=== PATIENT | male | born 1940 | race Caucasian/White ===

== ENCOUNTER 2017-03-18 08:43 | Inpatient (IN) | payer BC, OTHER ==
[2017-02-22 12:01] VITALS: BMI 35.0
--- NOTE | 2017-02-22 12:43 | PAT Medication Instructions ---
Service Date Feb 22, 2017. Current Home Medication List Albuterol Hfa (Ventolin Hfa), 2-4 PUFFS INH Q6H PRN for SOB/Wheezing Aspirin (Aspirin Ec), 81 MG PO QAM Atenolol (Tenormin), 25 MG PO QPM Atorvastatin (Lipitor), 40 MG PO QPM Budesonide/Formoterol Fumarate (Symbicort 160/4.5 Inhaler ), 2 PUFFS INH BID Furosemide (Lasix), 40 MG PO UD PRN for EDEMA Levothyroxine Sodium (Levothyroxine Sodium), 1 TAB PO QAM Metformin Hcl (Glucophage), 500 MG PO BID Omeprazole (Prilosec), 40 MG PO QAM Psyllium (Metamucil Fiber), 1 PKT PO BID Tamsulosin Hcl (Flomax), 0.4 MG PO QAM Vitamin E (E-400), 1 CAP PO QPM Vitamin E (Ra Vitamin E), 2 CAP PO QAM Medication Instructions For Your Scheduled Surgery - Hold the following medications 2 weeks prior to surgery: Vitamin E - Hold the following medications 48 hours prior to surgery: Metformin Hcl (Glucophage), 500 MG PO BID - Hold the following medications the morning of surgery: Psyllium (Metamucil Fiber), 1 PKT PO BID Furosemide (Lasix), 40 MG PO UD PRN for EDEMA - Take the following medications the morning of surgery with a sip of water OTHERWISE NOTHING TO EAT OR DRINK AFTER MIDNIGHT: Omeprazole (Prilosec), 40 MG PO QAM Tamsulosin Hcl (Flomax), 0.4 MG PO QAM Aspirin (Aspirin Ec), 81 MG PO QAM Levothyroxine Sodium (Levothyroxine Sodium), 1 TAB PO QAM Albuterol Hfa (Ventolin Hfa), 2-4 PUFFS INH Q6H PRN for SOB/Wheezing (use if needed; BRING TO HOSPITAL) Budesonide/Formoterol Fumarate (Symbicort 160/4.5 Inhaler ), 2 PUFFS INH BID - Take the following medications as scheduled the night before surgery: Psyllium (Metamucil Fiber), 1 PKT PO BID Atenolol (Tenormin), 25 MG PO QPM Atorvastatin (Lipitor), 40 MG PO QPM Albuterol Hfa (Ventolin Hfa), 2-4 PUFFS INH Q6H PRN for SOB/Wheezing Budesonide/Formoterol Fumarate (Symbicort 160/4.5 Inhaler ), 2 PUFFS INH BID If you have any questions please call us at [phone] or [phone] or [phone]
--- NOTE | 2017-02-22 13:22 | DIAGNOSTIC IMAGING REPORT ---
CHEST 2 VIEWS ROUTINE HISTORY: 76 years-old Male PAT preoperative exam. No acute chest complaints. COMPARISON: None available TECHNIQUE: PA and lateral views of the chest FINDINGS: Prior median sternotomy. Cardiac silhouette is mildly enlarged. There is atherosclerosis of the aorta. There is no pneumothorax, pleural effusion or focal airspace consolidation. Minimal linear interstitial opacities of the lung bases suggest areas of scarring. 7 mm nodular opacity projects over the left lung base suggesting nipple shadow. Degenerative changes involve the shoulders and spine. IMPRESSION: 1. No acute cardiopulmonary process. 2. 7 mm nodular projecting over the left lung base suggests nipple shadow. This could be confirmed with follow-up chest radiograph with nipple markers. The above report was generated using voice recognition software. It may contain grammatical, syntax or spelling errors. Electronically signed by: Bryan Francois M.D. 02/22/2017 1:21 PM Dictated Date/Time: 02/22/2017 1:19 PM
[2017-02-22 13:48] LABS: BASO % 0.2 %; BASO ABS # 0.01 K/uL (0-0.2); COMPLETE YES; EOS % 1.4 %; HEMATOCRIT 44.7 % (42-52); IG% 0.3 %; LYMPH % 28.2 %; LYMPH ABS # 1.63 K/uL (1.2-3.4); MEAN CELL VOLUME 88.3 fL (80-100); MEAN CORPUSCULAR HGB CONC 35.1 g/dl (32-36); MEAN PLATELET VOLUME 9.3 fL (7.4-10.4); MONO % 10.2 %; NEUT % 59.7 %; PLATELET COUNT 217 K/uL (130-400); RED BLOOD COUNT 5.06 M/uL (4.7-6.1); WHITE BLOOD COUNT 5.77 K/uL (4.8-10.8)
[2017-02-22 13:56] LABS: CREATININE 1.01 mg/dl (0.60-1.40); POTASSIUM 4.4 mmol/L (3.5-5.1)
[2017-02-22 13:59] LABS: PROTHROMBIN TIME (PATIENT) 10.7 SECONDS (9.0-12.0)
[2017-02-22 14:21] LABS: URINE APPEARANCE CLEAR (CLEAR); URINE BILIRUBIN NEG (NEG); URINE COLOR YELLOW; URINE EPITHELIAL CELL AUTO 0-5 /lpf (0-5); URINE NITRITE NEG (NEG); URINE SPECIFIC GRAVITY 1.023 (1.000-1.030); UROBILINOGEN NEG (NEG); ZZUR CULT IF INDIC CLEAN CATCH NO
[2017-02-22 14:27] LABS: MANUAL MICROSCOPIC REQUIRED? NO; REVIEW REQ? NO
[~2017-03-18] VITALS: Ht 170.2 cm; Wt 103.1 kg
[2017-03-18] VITALS (9 sets, daily range): BP systolic 89–116; BP diastolic 54–72; PULSE 57–72; TEMP 36.2–36.7; O2SAT 94–99; Ht 170.2 cm; Wt 103.1 kg
[~2017-03-18 08:43] MED LIST: ASPI81TA28 PO; ATEN-173 PO; ATOR-24 PO; CLINDAMYCIN 600 MG/54 ML D5W IV SCH; FRS/40 PO; GLC/500 PO; LACTATED RINGER'S 1000ML 1,000 ML IV SCH; LEVO137T3 PO; PRLSR20 PO; PSYL58.636 PO; SYMIN160 INH; TAMS0.4C38 PO; VITACAP37 PO; VNTHFA/IN INH; [UNRECOGNIZED DRUG - CODE] PO
[2017-03-18] MEDS ORDERED: ATROPINE SULFATE 0.1 MG/ML 5ML SYR IV PRN (09:00)
[2017-03-18] MEDS ORDERED: EpHEDrine SULFATE INJ 50 MG/ML AMP IV PRN (09:00)
[2017-03-18] MEDS ORDERED: PHENYLEPHRINE 100MCG/ML 5ML SYR IV PRN (09:00)
[2017-03-18] MEDS ORDERED: ONDANSETRON INJ 2 MG/ML 2 ML VIAL IV PRN ×2 (09:00→14:15)
[2017-03-18] MEDS ORDERED: HYDROmorphone INJ 2 MG/ML SYR/VIAL IV PRN (09:00)
--- NOTE | 2017-03-18 10:15 | History & Physical Bridge Note ---
H&P Re-Evaluation Bridge Note: I have examined the patient, reviewed the History & Physical and in the interval since the performance of the History & Physical I have noted the following changes of clinical significance: No changes noted
--- NOTE | 2017-03-18 10:17 | History and Physical ---
History & Physical Date Mar 18, 2017. Chief Complaint Back and leg pain History of Present Illness The patient is a 76 year old male with complaints of Back and leg pain Additional History Hepatic Disease: No Endocrine Disorder: No Kidney Disease: Yes Hypertension: No Heart Disease: No Bleeding Tendencies: No Infectious Diseases: No Allergies Coded Allergies: Amoxicillin (Verified Allergy, Intermediate, RASH, 02/22/17) Clavulanic Acid (Verified Allergy, Intermediate, RASH, 02/22/17) Ticagrelor (Verified Allergy, Unknown, SHORTNESS OF BREATH, 02/22/17) Lisinopril (Verified Adverse Reaction, Unknown, COUGH, 02/22/17) Morphine (Verified Adverse Reaction, Unknown, ITCHING, 02/22/17) Home Medications Scheduled Aspirin (Aspirin Ec), 81 MG PO QAM Atenolol (Tenormin), 25 MG PO QPM Atorvastatin (Lipitor), 40 MG PO QPM Budesonide/Formoterol Fumarate (Symbicort 160/4.5 Inhaler ), 2 PUFFS INH BID Levothyroxine Sodium (Levothyroxine Sodium), 1 TAB PO QAM Metformin Hcl (Glucophage), 500 MG PO BID Omeprazole (Prilosec), 40 MG PO QAM Psyllium (Metamucil Fiber), 1 PKT PO BID Tamsulosin Hcl (Flomax), 0.4 MG PO QAM Vitamin E (E-400), 1 CAP PO QPM Vitamin E (Ra Vitamin E), 2 CAP PO QAM Scheduled PRN Albuterol Hfa (Ventolin Hfa), 2-4 PUFFS INH Q6H PRN for SOB/Wheezing Furosemide (Lasix), 40 MG PO UD PRN for EDEMA Physical Examination Skin: warm/dry, no rash Eyes: normal inspection, EOMI, sclerae normal ENT: normal ENT inspection, pharynx normal Head: normocephalic, atraumatic Neck: supple, no adenopathy, trachea midline Respiratory/Chest: lungs clear, normal breath sounds, no respiratory distress Cardiovascular: regular rate, rhythm, no edema, no murmur Abdomen / GI: normal bowel sounds, non tender Back: normal inspection Extremities: normal inspection, normal range of motion Neurologic/Psych: no motor/sensory deficits, alert, normal reflexes, oriented x 3 Diagnosis Lumbar spinal stenosis with spondylolisthesis Plan of Treatment Lumbar decompression and fusion L2 to S1 with possible iliac bolts
[2017-03-18] MEDS ORDERED: FENTANYL CITRATE INJ 50 MCG/1 ML 2 ML VIAL ONE ×4 (10:18→14:00)
[2017-03-18] MEDS ORDERED: MIDAZOLAM HCL 1 MG/ML 2ML VIAL ONE (10:18)
[2017-03-18] MEDS ORDERED: ALBUMIN HUMAN 5% 12.5 GM/250 ML VIAL IV ONE ×2 (10:46→13:29)
[2017-03-18] MEDS ORDERED: BACITRACIN 50000 UNIT VIAL ONE (10:48)
[2017-03-18] MEDS ORDERED: BUPIVACAINE/EPINEPHRINE 0.5% MPF 1:200,000 30 ML VIAL ONE (10:48)
[2017-03-18] MEDS ORDERED: HYDROmorphone INJ 2 MG/ML SYR/VIAL ONE ×3 (11:27→14:13)
[2017-03-18] MEDS ORDERED: PROPOFOL IV EMULSION 10 MG/ML 20 ML VIAL IV ONE (11:39)
[2017-03-18] MEDS ORDERED: ONDANSETRON INJ 2 MG/ML 2 ML VIAL ONE ×2 (11:39→14:14)
[2017-03-18] MEDS ORDERED: LIDOCAINE HCL 2% 2 ML VIAL (20MG/ML) ONE (11:39)
[2017-03-18] MEDS ORDERED: ROCURONIUM BROMIDE 10 MG/ML 5 ML VIAL IV ONE (11:39)
[2017-03-18] MEDS ORDERED: DEXAMETHASONE SOD INJ 4 MG/ML VIAL ONE (11:39)
[2017-03-18 14:12] LABS: HEMATOCRIT 33.2 % (42-52)
[2017-03-18] MEDS ORDERED: SODIUM CHLORIDE 0.9% 1000ML 1,000 ML IV SCH (14:12)
[2017-03-18] MEDS ORDERED: KETOROLAC TROMETHAMINE 30 MG/ML VIAL ONE (14:14)
[2017-03-18] MEDS ORDERED: EpHEDrine SULFATE 50MG/5ML SYR ONE (14:14)
[2017-03-18] MEDS ORDERED: GLYCOPYRROLATE INJ 0.2 MG/ML VIAL ONE (14:14)
[2017-03-18] MEDS ORDERED: PHENYLEPHRINE 100MCG/ML 5ML SYR ONE (14:14)
[2017-03-18] MEDS ORDERED: NEOSTIGMINE METHYLSULFATE 1 MG/ML 10ML VIAL ONE (14:14)
[2017-03-18] MEDS ORDERED: MAGNESIUM HYDROXIDE SUSP 30 ML UDC PO PRN (14:15)
[2017-03-18] MEDS ORDERED: SOD PHOSPHATE/SOD BIPHOSPHATE ENEMA 132 ML BTL PR PRN (14:15)
[2017-03-18] MEDS ORDERED: hydrOXYzine HCL 25 MG TAB PO PRN (14:15)
[2017-03-18] MEDS ORDERED: FUROSEMIDE 40 MG TAB PO PRN (14:15)
[2017-03-18] MEDS ORDERED: NALOXONE HCL 0.4 MG/1 ML VIAL/CARP IV PRN ×2 (14:15)
[2017-03-18] MEDS ORDERED: ALUMINUM/MAGNESIUM SUSP 30 ML UDC PO PRN (14:15)
[2017-03-18] MEDS ORDERED: METOCLOPRAMIDE HCL INJ 5 MG/ML 2 ML VIAL IV PRN (14:15)
[2017-03-18] MEDS ORDERED: PROMETHAZINE HCL INJ 12.5 MG in SODIUM CHLORIDE 0.9% 50ML 50 ML IV PRN (14:15)
[2017-03-18] MEDS ORDERED: ACETAMINOPHEN 500 MG TAB PO PRN (14:15)
[2017-03-18] MEDS ORDERED: ACETAMINOPHEN IV 100 ML IV PRN (14:15)
[2017-03-18] MEDS ORDERED: LORAZEPAM INJ 0.5 MG in SYRINGE 0 ML IV PRN (14:15)
[2017-03-18] MEDS ORDERED: BISACODYL 10 MG SUPP PR PRN (14:15)
[2017-03-18] MEDS ORDERED: FAMOTIDINE 20 MG TAB PO PRN (14:15)
[2017-03-18] MEDS ORDERED: DO NOT ADMINISTER FLU VACCINE PRN ×3 (14:15)
[2017-03-18] MEDS ORDERED: DO NOT ADMINISTER PNEUMOCOCCAL VACCINE PRN ×2 (14:15)
[2017-03-18] MEDS ORDERED: ALBUTEROL HFA 8 GM INHALER INH PRN (14:15)
[2017-03-18] MEDS ORDERED: LORAZEPAM 0.5 MG TAB PO PRN (14:15)
--- NOTE | 2017-03-18 14:15 | DIAGNOSTIC IMAGING REPORT ---
INTRAOPERATIVE LUMBAR SPINE 5 VIEWS CLINICAL HISTORY: L2-S1 DECOMPRESSION/FUSION POSSIBLE INTERBODY fusion COMPARISON STUDY: 07/13/2016 FINDINGS: 36 seconds of fluoroscopic time was utilized. 5 intraoperative fluoroscopic spot images are provided for interpretation. There are postsurgical changes of an L2-S1 spinal fusion with pedicle screw fixation and adjoining spinal rods. Bilateral sacroiliac bolts are also visualized. There is a grade 1 spondylolisthesis of L5 on S1. IMPRESSION: Intraoperative radiographs demonstrating a spinal decompression and fusion. Electronically signed by: Terrance Rodriguez M.D. 03/18/2017 2:14 PM Dictated Date/Time: 03/18/2017 2:11 PM
[2017-03-18] MEDS ORDERED: PHARMACY GLYCEMIC MGMT CONSULT PRN (14:23)
--- NOTE | 2017-03-18 14:29 | [facility] Operative Report ---
Operative Report Operative Date Mar 18, 2017. Pre-Operative Diagnosis Lumbar spinal stenosis with spondylolisthesis Post-Operative Diagnosis Lumbar spinal stenosis with spondylolisthesis Procedure(s) Performed #1 lumbar decompression medial facetectomy foraminotomy L2 3 L3 4 L4 5 L5-S1. #2 posterior spinal fusion L2 3 L3 4 L4 5 L5-S1. #3 bilateral SI joint fusion. #4 placement posterior segmental instrumentation L2 to S1 with bilateral iliac bolts. #5 placement of locally harvested morcellized autograft and posterior gutters. #6 placement infuse collagen sponge combined with Master graft in the posterior lateral gutters and SI joints. Surgeon Dr. Eddy Animal Keeper Head Surgeon(s) SHIRA Byrd Estimated Blood Loss 1100ml Findings Severe spinal stenosis with spondylolisthesis Specimens none per surgeon Description of Procedure Patient was met with preoperatively case discussed all questions addressed. After informed consent was obtained patient was taken operative suite underwent intubation placed in a prone position the Mg table on top Luke frame. All bony prominences well-padded eyes inspected to ensure no external pressure placed upon them. This point the lumbar spines prepped draped nostril fashion. Sharp dissection with the assistance of Bovie cautery was performed onto an exposing the lamina and transverse processes of L2-L3 L4-L5 sacral Colleen and SI joints bilaterally. Then proceeded performed a complete laminectomy of L5 L4 L3 and L2 addressing severe lateral recess and foraminal disease.. 4551 levels. Obvious pars defect a 5 was performed appreciated. After complete decompression pedicle screws are placed in L2 L3 L4 L5-S1 levels this well bilateral iliac bolts. Purposes rods were then contoured locked in position bilaterally. After this complete the transverse processes of L2-L3 L4-L5 and sacral Colleen and bilateral SI joints were burred to subcortical bleeding bone. Infuse collagen sponge about Master graft locally harvested morcellized autograft was placed. 15 round JANY drain inserted. Incision was then closed with 1 Vicryl fascia 2-0 Vicryl subcutaneous C 4 Monocryl for final skin closure Steri-Strips sterile dressings placed. Patient we can take PACU stable condition. Please note Luis record was present throughout the entire procedure involved in patient positioning complex portions of the surgery and final skin closure. I attest to the content of the Intraoperative Record and any orders documented therein. Any exceptions are noted below.
[2017-03-18] MEDS: HYDROmorphone HCL 0.5MG/ML 50 ML CASSETTE IV PRN ×2 (14:53→15:36)
--- NOTE | 2017-03-18 14:53 | Anesthesiology Progress Note ---
Anesthesia Post Op Note Date & Time Mar 18, 2017 at 14:53 Vital Signs Pain Intensity: 0 Vital Signs Past 12 Hours Date Time Temp Pulse Resp B/P (MAP) Pulse Ox O2 Delivery O2 Flow Rate FiO2 03/18/17 14:45 64 14 100/60 (77) 99 Oxymask 10 03/18/17 14:35 36.0 73 16 98/61 (67) 98 Oxymask 10 03/18/17 09:02 36.7 61 18 116/72 94 Room Air Notes Mental Status: alert / awake / arousable, participated in evaluation Pt Amnestic to Procedure: Yes Nausea / Vomiting: adequately controlled Pain: adequately controlled Airway Patency, RR, SpO2: stable & adequate BP & HR: stable & adequate Hydration State: stable & adequate Anesthetic Complications: no major complications apparent
[2017-03-18] MEDS ORDERED: GLUCAGON FOR INJ 1 MG VIAL SQ PRN (15:15)
[2017-03-18] MEDS ORDERED: GLUCOSE 10 TABS/TUBE PO PRN (15:15)
[2017-03-18] MEDS ORDERED: DEXTROSE 50% 50 ML SYR IV PRN (15:15)
[2017-03-18] MEDS ORDERED: GLUCOSE 40% GEL 15 GM TUBE PO PRN (15:15)
--- NOTE | 2017-03-18 15:16 | Pharmacy Progress Note ---
Pharmacy Glycemic Short Note 2 Date of Service Mar 18, 2017. OUTPATIENT ANTIDIABETIC REGIMEN: * Metformin 500 mg PO BID ASSESSMENT: * 76 yr M s/p lumbar decompression and fusion. * h/o T2DM on metformin as outpatient - control unknown. A1c ordered for tomorrow. * Will hold oral agents for admission and utilize SQ basal bolus insulin regimen which is the recommended regimen for inpatient glycemic control. * Will initiate weight based insulin dosing for insulin tahmina patient and titrate based on BSG trends. PLAN FOR INPATIENT GLYCEMIC CONTROL: * Hold outpatient oral diabetes medications * Basal insulin * Lantus 52 units SQ today with dinner * Further orders to be determined on 03/19 * Bolus insulin * NovoLog per scale ACHS * Goal Range: Low 110 mg/dL - High 140 mg/dL * Correction Factor: 15 mg/dL/unit * Nutritional / Prandial insulin per carb ratio of 1 unit per 5 grams CHO consumed * Overnight check with coverage at 00 and 04
[2017-03-18] MEDS ORDERED: LANTUS PER UNIT CHARGE SQ ONE (15:30)
[2017-03-18] MEDS: INSULIN ASPART 100 UNITS/ML 3 ML PEN SC SCH ×2 (18:00→21:38)
--- NOTE | 2017-03-18 18:52 | Medical Consult ---
History General Date of Service: Mar 18, 2017. Stated Complaint: Lumbar Spinal Stenosis HPI The patient is a 76 year old male who presents to [facility] with complaints of back pain The patient's primary care provider is Farhad Dhaliwal D.O.. 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 complain of SOB , chest discomfort no fever or chills Historian: patient Review of Systems Constitutional: reports: no symptoms Eyes: reports: no symptoms ENT: reports: no symptoms Respiratory: reports: no symptoms Gastrointestinal: reports: no symptoms Genitourinary - Male: reports: no symptoms Musculoskeletal: reports: other (back pain s/p spinal surgery ) Neurologic: reports: no symptoms Endocrine: no symptoms All Other Symptoms All Other Systems: Reviewed and Negative Past Medical History Past Medical History: chronic back pain, diabetes, high cholesterol, hypertension Family History Sibling: Diabetes Social History Hx Tobacco Use In Past Year?: No Smoking Status: Never Smoker Alcohol: socially Drug Use: none Marital status: Housing status: lives with family Occupational Status: retired Allergies Coded Allergies: Amoxicillin (Verified Allergy, Intermediate, RASH, 02/22/17) Clavulanic Acid (Verified Allergy, Intermediate, RASH, 02/22/17) Ticagrelor (Verified Allergy, Unknown, SHORTNESS OF BREATH, 02/22/17) Lisinopril (Verified Adverse Reaction, Unknown, COUGH, 02/22/17) Morphine (Verified Adverse Reaction, Unknown, ITCHING, 02/22/17) Current Medications Reported Home Medications Medications Dose Route/Sig Max Daily Dose Days Date Category Metamucil Fiber (Psyllium) 51.7 % J Carlos 1 Pkt PO BID 02/22/17 Reported Lasix (Furosemide) 40 Mg Tab 40 Mg PO UD PRN 02/22/17 Reported Ra Vitamin E (Vitamin E) 400 Unit Cap 2 Cap PO QAM 02/22/17 Reported E-400 (Vitamin E) 400 Unit Cap 1 Cap PO QPM 02/22/17 Reported Ventolin Hfa (Albuterol) 200 Puffs/48472 Mcg Aers 2-4 Puffs INH Q6H PRN 02/22/17 Reported Symbicort 160/4.5 Inhaler (Budesonide/Formoterol Fumarate) Aero 2 Puffs INH BID 02/22/17 Reported Glucophage (Metformin Hcl) 500 Mg Tab 500 Mg PO BID 02/22/17 Reported Aspirin Ec (Aspirin) 81 Mg Tab 81 Mg PO QAM 02/22/17 Reported Prilosec (Omeprazole) 20 Mg Capcr 40 Mg PO QAM 02/22/17 Reported Lipitor (Atorvastatin Calcium) 40 Mg Tab 40 Mg PO QPM 02/22/17 Reported Levothyroxine Sodium 137 Mcg Tab 1 Tab PO QAM 90 02/22/17 Reported Flomax (Tamsulosin Hcl) 0.4 Mg Cap 0.4 Mg PO QAM 02/22/17 Reported Tenormin (Atenolol) 25 Mg Tab 25 Mg PO QPM 02/22/17 Reported Physical Physical Exam Vital Signs: Date Time Temp Pulse Resp B/P (MAP) Pulse Ox O2 Delivery O2 Flow Rate FiO2 03/18/17 18:39 36.3 65 18 101/62 (75) 99 Nasal Cannula 4.0 03/18/17 17:35 36.4 67 18 94/57 (69) 97 Nasal Cannula 4.0 03/18/17 16:29 36.3 65 18 101/64 (76) 98 Nasal Cannula 4.0 03/18/17 16:01 36.2 60 18 89/59 (69) 95 Nasal Cannula 4.0 03/18/17 15:45 97 Nasal Cannula 03/18/17 15:30 36.3 57 16 94/55 (68) 97 Nasal Cannula 4.0 03/18/17 15:15 36.0 63 18 98/53 97 Nasal Cannula 4 03/18/17 15:05 62 13 102/58 98 Nasal Cannula 4 03/18/17 14:55 65 11 96/57 100 Oxymask 10 03/18/17 14:45 64 14 100/60 (77) 99 Oxymask 10 03/18/17 14:35 36.0 73 16 98/61 (67) 98 Oxymask 10 03/18/17 09:02 36.7 61 18 116/72 94 Room Air General Appearance: WELL-APPEARING, NO APPARENT DISTRESS Head: NORMOCEPHALIC, ATRAUMATIC Eyes: PERRLA, EOMI, SCLERAE NORMAL Neck: NORMAL RANGE OF MOTION, NO TENDERNESS, TRACHEA MIDLINE, NO THYROMEGALY Respiratory: BREATH SOUNDS NORMAL, CLEAR TO AUSCULTATION, NO RESPIRATORY DISTRESS Cardiovasular: REGULAR RATE/RHYTHM, NORMAL S1S2 Abdomen: NON TENDER, NORMAL BOWEL SOUNDS Back: other (s/p lumber spinal decompression surgery JANY drain present ) Lower Extremities: NO EDEMA, NO DEFORMITY Neuro: ALERT, ORIENTED x 3 Psychiatric: NORMAL AFFECT Diagnostics Labs Results Past 24 Hours Test 03/18/17 09:18 03/18/17 13:58 03/18/17 14:41 03/18/17 17:20 Range/Units Bedside Glucose 144 222 237 70-99 mg/dl Hemoglobin 11.3 14.0-18.0 g/dL Hematocrit 33.2 42-52 % Diagnostic Radiology INTRAOPERATIVE LUMBAR SPINE 5 VIEWS CLINICAL HISTORY: L2-S1 DECOMPRESSION/FUSION POSSIBLE INTERBODY fusion COMPARISON STUDY: 07/13/2016 FINDINGS: 36 seconds of fluoroscopic time was utilized. 5 intraoperative fluoroscopic spot images are provided for interpretation. There are postsurgical changes of an L2-S1 spinal fusion with pedicle screw fixation and adjoining spinal rods. Bilateral sacroiliac bolts are also visualized. There is a grade 1 spondylolisthesis of L5 on S1. IMPRESSION: Intraoperative radiographs demonstrating a spinal decompression and fusion. Impression Assessment and Plan LUMBER SPINE STENOSIS : s/p decompression surgery recovering well post op pain controlled with Dilaudid HADOOP JAVA DEVELOPER possible transition to intermittent IV and oral pain meds management as per Ortho PT/OT TYPE 2 DM : oral home meds metformin on hold while in patient given IV steroid intra operatively expected BSG to be elevated due to steroid Insulin SSI /Basal Lantus Hb A1c in AM labs Pharmacy following for glycemic management HTN : cont Atenolol with holding parameters for hypotension HYPOTHYROIDISM : on levothyroxine FULL CODE DVT PROPHYLAXIS : SCD and TEDs per Ortho DISPOSITION: per ortho thank you for allowing us to participate in the care of this patient will continue to follow pt during his hospital course Dr Sreekanth Castaneda will follow the patient starting from tomorrow Admit To Med/Surg Code Status Level 1 - Full Code DVT Prophylaxis T.E.D. stockings
[2017-03-18] MEDS: CLINDAMYCIN IV 600 MG in DEXTROSE 5% 50ML 50 ML IV SCH (19:47)
[2017-03-18] MEDS: ATORVASTATIN 20 MG TAB PO SCH (21:35)
[2017-03-18] MEDS: DOCUSATE SODIUM/SENNA 50/8.6MG TAB PO SCH (21:35)
[2017-03-18] MEDS: BUDESONIDE/FORMOTEROL FUMARATE 160/4.5 60 PUFFS/INHALER INH SCH (21:35)
[2017-03-18] MEDS: SODIUM CHLORIDE 0.9% 1000ML 1,000 ML IV SCH ×2 (22:04→22:30)
[2017-03-19] VITALS (8 sets, daily range): BP systolic 101–119; BP diastolic 61–75; PULSE 87–119; TEMP 36.5–37.3; O2SAT 91–96
[2017-03-19] MEDS: INSULIN ASPART 100 UNITS/ML 3 ML PEN SC SCH ×6 (00:03→21:00)
[2017-03-19] MEDS: HYDROmorphone HCL 0.5MG/ML 50 ML CASSETTE IV PRN (00:04)
[2017-03-19] MEDS: CLINDAMYCIN IV 600 MG in DEXTROSE 5% 50ML 50 ML IV SCH (03:50)
[2017-03-19] MEDS: SODIUM CHLORIDE 0.9% 1000ML 1,000 ML IV SCH (05:10)
[2017-03-19] MEDS ORDERED: DC PCA ONE (06:00)
[2017-03-19 06:05] LABS: BASO % 0.1 %; BASO ABS # 0.01 K/uL (0-0.2); EOS % 0.1 %; HEMATOCRIT 25.3 % (42-52); IG% 0.2 %; LYMPH % 12.1 %; LYMPH ABS # 1.13 K/uL (1.2-3.4); MEAN CELL VOLUME 91.3 fL (80-100); MEAN CORPUSCULAR HEMOGLOBIN 30.7 pg (25-34); MEAN CORPUSCULAR HGB CONC 33.6 g/dl (32-36); MONO % 11.8 %; NEUT % 75.7 %; PLATELET COUNT 159 K/uL (130-400); RED BLOOD COUNT 2.77 M/uL (4.7-6.1); WHITE BLOOD COUNT 9.33 K/uL (4.8-10.8)
[2017-03-19] MEDS: LEVOTHYROXINE 137 MCG TAB PO SCH (06:09)
[2017-03-19] MEDS ORDERED: NURSING VERBAL MED ORDER ONE (06:15)
[2017-03-19 06:37] LABS: BUN/CREATININE RATIO 21.5 (10-20); CALCIUM 7.2 mg/dl (8.5-10.1); CREATININE 0.91 mg/dl (0.60-1.40)
[2017-03-19 07:04] LABS: COMPLETE YES
[2017-03-19 07:27] LABS: ESTIMATED AVERAGE GLUCOSE 157 mg/dl; HA1C FLAG Normal (Normal)
[2017-03-19] MEDS: TAMSULOSIN HCL 0.4 MG CAP PO SCH (08:07)
[2017-03-19] MEDS: BUDESONIDE/FORMOTEROL FUMARATE 160/4.5 60 PUFFS/INHALER INH SCH ×2 (08:07→21:22)
[2017-03-19] MEDS: ASPIRIN 81 MG ECTAB PO SCH (08:07)
[2017-03-19] MEDS: PANTOprazole SOD 40 MG TAB PO SCH (08:07)
[2017-03-19] MEDS ORDERED: LANTUS PER UNIT CHARGE SQ ONE ×2 (09:00→21:00)
[2017-03-19] MEDS ORDERED: HYDROmorphone INJ 1 MG/ML SYR IV PRN (09:00)
[2017-03-19] MEDS ORDERED: HYDROmorphone INJ 0.5 MG/0.5 ML SYR IV PRN (09:00)
[2017-03-19] MEDS: OXYCODONE HCL IR 5 MG TAB (IMMEDIATE RELEASE) PO PRN ×3 (09:39→21:20)
--- NOTE | 2017-03-19 10:41 | Progress Note ---
Progress Note Date of Service Mar 19, 2017. Progress Note Patient's postop day #1. Back and leg pain well controlled. Vital signs are stable. Exam is good strength testing appears comfortable. Assessment status post multilevel lumbar decompression fusion. Plan we will obtain H&H in a.m. continue physical therapy plan for discharge to [facility] hopefully Tuesday.
--- NOTE | 2017-03-19 13:56 | Pharmacy Progress Note ---
Pharmacy Glycemic Short Note 2 Date of Service Mar 19, 2017. OUTPATIENT ANTIDIABETIC REGIMEN: * Metformin 500 mg PO BID ASSESSMENT: * 76 yr M POD #1 s/p lumbar decompression and fusion. * h/o T2DM well controlled on metformin as outpatient. * Scr at baseline and pt tolerated food by mouth --> resume metformin * Will decrease basal insulin and loosen bolus parameters after lunch since dexamethasone effect has dissipated. PLAN FOR INPATIENT GLYCEMIC CONTROL: * Resume metformin 500 mg BIDM with dinner * Basal insulin - decrease * Lantus 36 units SQ this am * Lantus 0-18 units SQ tonight (anticipate this being last dose of Lantus) * 0 units for BSG less than 140, 9 units for 140-180, 18 units for BSG greater than 180 * Bolus insulin - loosen * NovoLog per scale ACHS * Goal Range: Low 110 mg/dL - High 140 mg/dL * Correction Factor: 20 mg/dL/unit * Nutritional / Prandial insulin per carb ratio of 1 unit per 7 grams CHO consumed PLAN FOR DISCHARGE: * Continue metformin 500 mg PO BID * consider increasing dose by 500 mg per week to goal of 1000 mg BID as tolerated
[2017-03-19] MEDS: METFORMIN HCL 500 MG TAB PO SCH (18:26)
--- NOTE | 2017-03-19 19:10 | Progress Note ---
Medicine Progress Note Date & Time of Visit: Mar 19, 2017 at 14:40 . Subjective Doing well postoperatively. No chest pain. No cough or dyspnea. No nausea or vomiting. No BM since surgery. Voiding without difficulty. Postop pain well-controlled. . Objective Last 8 Hrs Date Time Temp Pulse Resp B/P (MAP) Pulse Ox O2 Delivery O2 Flow Rate FiO2 03/19/17 16:40 Room Air 03/19/17 15:42 36.9 100 18 119/70 (86) 94 Room Air 03/19/17 13:13 92 96 03/19/17 12:06 37.3 92 18 101/62 (75) 93 Room Air Physical Exam: General- sitting in chair, no distress Lungs- clear Heart- RRR, no gallop Abdomen- + BS, soft, nontender Extremities- no pretibial edema or calf tenderness Skin- warm & dry Neuro- alert . Laboratory Results: Last 24 Hours Test 03/18/17 20:33 03/18/17 23:53 03/19/17 03:46 03/19/17 05:06 Bedside Glucose 222 mg/dl 166 mg/dl 130 mg/dl White Blood Count 9.33 K/uL Red Blood Count 2.77 M/uL Hemoglobin 8.5 g/dL Hematocrit 25.3 % Mean Corpuscular Volume 91.3 fL Mean Corpuscular Hemoglobin 30.7 pg Mean Corpuscular Hemoglobin Concent 33.6 g/dl Platelet Count 159 K/uL Mean Platelet Volume 9.0 fL Neutrophils (%) (Auto) 75.7 % Lymphocytes (%) (Auto) 12.1 % Monocytes (%) (Auto) 11.8 % Eosinophils (%) (Auto) 0.1 % Basophils (%) (Auto) 0.1 % Neutrophils # (Auto) 7.06 K/uL Lymphocytes # (Auto) 1.13 K/uL Monocytes # (Auto) 1.10 K/uL Eosinophils # (Auto) 0.01 K/uL Basophils # (Auto) 0.01 K/uL RDW Standard Deviation 43.0 fL RDW Coefficient of Variation 12.9 % Immature Granulocyte % (Auto) 0.2 % Immature Granulocyte # (Auto) 0.02 K/uL Red Blood Cell Morphology Unremarkable Sodium Level 138 mmol/L Potassium Level 4.0 mmol/L Chloride Level 106 mmol/L Carbon Dioxide Level 28 mmol/L Anion Gap 4.0 mmol/L Blood Urea Nitrogen 20 mg/dl Creatinine 0.91 mg/dl Est Creatinine Clear Calc Drug Dose 79.0 ml/min Estimated GFR () 94.5 Estimated GFR (Non- 81.6 BUN/Creatinine Ratio 21.5 Random Glucose 125 mg/dl Estimated Average Glucose 157 mg/dl Hemoglobin A1c 7.1 % Calcium Level 7.2 mg/dl Test 03/19/17 08:12 03/19/17 12:02 03/19/17 16:47 Bedside Glucose 132 mg/dl 157 mg/dl 125 mg/dl Assessment & Plan S/P LUMBAR DECOMPRESSION / FUSION POD # 1. Doing well. HYPERTENSION BP this morning = 105/61. Continue atenolol. DM TYPE 2 Well-controlled. Hgb A1C = 7.1. FBS = 132. Insulin coverage per protocol. DYSLIPIDEMIA Continue atorvastatin. HYPOTHYROIDISM Continue levothyroxine. BPH Continue tamsulosin. VTE PROPHYLAXIS Per Ortho protocol. Thank you for this consultation. We will follow the patient with you during their hospital stay. You can reach a member of the [facility] Medicine Team 01/11 via pager @ [phone]. You can reach me via cell @ [phone]. . Current Inpatient Medications: Current Inpatient Medications Medications (Trade) Dose Ordered Sig/Mary Route Start Time Stop Time Status Last Admin Dose Admin Promethazine HCl 12.5 mg/Sodium Chloride 50.5 ml @ 202 mls/hr Q6H PRN IV 03/18/17 14:15 04/17/17 14:14 Ondansetron HCl (Zofran Inj) 4 mg Q6H PRN IV 03/18/17 14:15 04/17/17 14:14 Metoclopramide HCl (Reglan Inj) 10 mg Q6H PRN IV 03/18/17 14:15 04/17/17 14:14 Lorazepam (Ativan Tab) 0.5 mg Q8H PRN PO 03/18/17 14:15 04/17/17 14:14 Lorazepam 0.5 mg/ Syringe 0.25 ml @ 1 mls/min Q8H PRN IV 03/18/17 14:15 04/17/17 14:14 Pneumococcal Polysaccharide Vaccine 1 ea PRN PRN N/A 03/18/17 14:15 04/17/17 14:14 Influenza Virus Vacc Triv Types A&B 1 ea PRN PRN N/A 03/18/17 14:15 04/17/17 14:14 Polyethylene (Miralax Powder Packet) 17 gm Q6 PO 03/20/17 06:00 04/19/17 05:59 Bisacodyl (Dulcolax Supp) 10 mg DAILY PRN [place] 03/18/17 14:15 04/17/17 14:14 Magnesium Hydroxide (Milk Of Magnesia Susp) 30 ml DAILY PRN PO 03/18/17 14:15 04/17/17 14:14 Hydromorphone HCl (Dilaudid Inj) 0.5 mg Q3H PRN IV 03/19/17 09:00 04/02/17 08:59 Oxycodone HCl (Roxicodone Immediate Rel Tab) 5-10mg prn moderate to sev... Q4H PRN PO 03/19/17 06:00 04/02/17 05:59 03/19/17 16:51 5 MG Acetaminophen (Tylenol Tab) 1,000 mg Q8H PRN PO 03/18/17 14:15 04/17/17 14:14 Acetaminophen 100 ml @ 400 mls/hr Q8H PRN IV 03/18/17 14:15 04/17/17 14:14 Naloxone HCl (Narcan Inj) 0.1 mg Q5M PRN IV 03/18/17 14:15 04/17/17 14:14 Senna/Docusate Sodium (Senokot S Tab) 2 tab HS PO 03/18/17 21:00 04/17/17 20:59 03/18/17 21:35 2 TAB Sodium Biphosphate/ Sodium Phosphate (Fleet Enema) 132 ml ONE PRN [place] 03/18/17 14:15 04/17/17 14:14 Hydroxyzine HCl (Vistaril Tab) 25 mg Q8H PRN PO 03/18/17 14:15 04/17/17 14:14 Al Hydroxide/Mg Hydroxide (Maalox Susp) 30 ml Q6H PRN PO 03/18/17 14:15 04/17/17 14:14 Famotidine (Pepcid Tab) 20 mg Q12 PRN PO 03/18/17 14:15 04/17/17 14:14 Diphenhydramine HCl (Benadryl Cap) 25 mg Q6H PRN PO 03/18/17 14:15 04/17/17 14:14 Albuterol (Ventolin Hfa Inhaler) 2 puffs Q6H PRN INH 03/18/17 14:15 04/17/17 14:14 Aspirin (Ecotrin Tab) 81 mg QAM PO 03/19/17 09:00 04/18/17 08:59 03/19/17 08:07 81 MG Atenolol (Tenormin Tab) 25 mg QPM PO 03/18/17 21:00 04/17/17 20:59 Atorvastatin Calcium (Lipitor Tab) 40 mg QPM PO 03/18/17 21:00 04/17/17 20:59 03/18/17 21:35 40 MG Budesonide/ Formoterol Fumarate (Symbicort 160/ 4.5 Inh) 2 puffs BID INH 03/18/17 21:00 04/17/17 20:59 03/19/17 08:07 2 PUFFS Furosemide (Lasix Tab) 40 mg DAILY PRN PO 03/18/17 14:15 04/17/17 14:14 Levothyroxine Sodium (Synthroid Tab) 137 mcg DAILYBB PO 03/19/17 06:00 04/18/17 05:59 03/19/17 06:09 137 MCG Tamsulosin HCl (Flomax Cap) 0.4 mg QAM PO 03/19/17 09:00 04/18/17 08:59 03/19/17 08:07 0.4 MG Pantoprazole Sodium (Protonix Tab) 40 mg QAM PO 03/19/17 09:00 04/18/17 08:59 03/19/17 08:07 40 MG Miscellaneous Information (Consult Glycemic Management Pharmacy) 1 ea UD PRN N/A 03/18/17 14:23 04/17/17 14:22 Insulin Aspart (novoLOG ASPART) SLIDING SCALE ACHS SC 03/18/17 16:00 04/17/17 15:59 03/19/17 18:29 4 UNITS Glucose (Glucose 40% Gel) 15-30 GRAMS 15 GRAMS... UD PRN PO 03/18/17 15:15 04/17/17 15:14 Glucose (Glucose Chew Tab) 4-8 Tablets 4 Tabl... UD PRN PO 03/18/17 15:15 04/17/17 15:14 Dextrose (Dextrose 50% 50ML Syringe) 25-50ML OF 50% DW IV FOR... UD PRN IV 03/18/17 15:15 04/17/17 15:14 Glucagon (Glucagon Inj) 1 mg UD PRN SQ 03/18/17 15:15 04/17/17 15:14 Hydromorphone HCl (Dilaudid Inj) 1 mg Q3H PRN IV 03/19/17 09:00 04/02/17 08:59 Metformin HCl (Glucophage Tab) 500 mg BIDM PO 03/19/17 17:45 04/18/17 17:44 03/19/17 18:26 500 MG Insulin Glargine (Lantus Per Unit) see protocol text HS ONCE SQ 03/19/17 21:00 03/19/17 21:01
[2017-03-19] MEDS: ATORVASTATIN 20 MG TAB PO SCH (21:19)
[2017-03-19] MEDS: DOCUSATE SODIUM/SENNA 50/8.6MG TAB PO SCH (21:19)
[2017-03-20] MEDS: OXYCODONE HCL IR 5 MG TAB (IMMEDIATE RELEASE) PO PRN ×4 (04:23→20:29)
[2017-03-20] MEDS: POLYETHYLENE (MIRALAX) 17 GM PACK PO SCH ×4 (05:48→23:43)
[2017-03-20] MEDS: LEVOTHYROXINE 137 MCG TAB PO SCH (05:48)
[2017-03-20 06:17] LABS: HEMATOCRIT 24.9 % (42-52)
[2017-03-20 07:41] VITALS: BP 98/61; PULSE 86; TEMP 37; O2SAT 92
[2017-03-20] MEDS: METFORMIN HCL 500 MG TAB PO SCH ×2 (08:41→18:05)
[2017-03-20] MEDS: PANTOprazole SOD 40 MG TAB PO SCH (08:41)
[2017-03-20] MEDS: ASPIRIN 81 MG ECTAB PO SCH (08:41)
[2017-03-20] MEDS: BUDESONIDE/FORMOTEROL FUMARATE 160/4.5 60 PUFFS/INHALER INH SCH ×2 (08:42→21:03)
[2017-03-20] MEDS: TAMSULOSIN HCL 0.4 MG CAP PO SCH (08:42)
[2017-03-20] MEDS: INSULIN ASPART 100 UNITS/ML 3 ML PEN SC SCH ×4 (08:47→21:00)
[2017-03-20] MEDS ORDERED: LANTUS PER UNIT CHARGE SQ SCH (09:00)
[2017-03-20] MEDS ORDERED: RXC5 PO (13:01)
--- NOTE | 2017-03-20 13:02 | Discharge Instructions ---
Discharge Instructions Date of Service Mar 20, 2017. Admission Reason for Admission: Lumbar Spinal Stenosis Discharge Discharge Diagnosis / Problem: lumbar stenosis Discharge Goals Goal(s): Improve function Activity Recommendations Activity Limitations: per Instructions/Follow-up section . Instructions / Follow-Up Instructions / Follow-Up ACTIVITY RECOMMENDATIONS: SELF CARE INSTRUCTIONS AFTER THORACIC/LUMBAR FUSIONS 1. You may walk to your tolerance. It is good exercise for your legs and back. Expect some back and intermittent leg aches and pains. 2. You may perform "counter-top" level activities (make a sandwich, ceci with a project, etc.). 3. No bending or lifting of more than 10 pounds or back twisting of any nature (roll like a log when turning in bed). 4. You may ride in a car for 20-30 minutes at a time. No driving until after your first visit with your doctor. 5. Frequent changes of position and restricting sitting to 30 minutes at a time will help limit the amount of back spasms and stiffness you may experience. 6. You may discontinue the use of ambulatory aids (cane, crutches, etc.) once your strength and confidence allow. 7. You may compressor engineer the shower and let water strike your incision when you arrive home at least once daily. Do not take a tub bath, sit in a hot tub or go into a swimming pool until after your first recheck in the office. SPECIAL CARE INSTRUCTIONS: VERY IMPORTANT TO READ AND REVIEW A. Your surgical incision has been closed with a cosmetic suture under the skin that will dissolve in about 6 weeks. In 14 days, you can use a pair of clean scissors and cut the suture that is left outside of the skin at the ends of your incision. 1. The small skin tapes can be removed 7 days after surgery if they have not fallen off by that point. 2. You may keep the wound open to air as much as possible to promote healing after post-op day number 5 unless told otherwise by your doctor. 3. If you think the wound looks like it is becoming infected (redness or worsening drainage) and/or you are experiencing fever, chill or worsening back pain and muscle spasms, contact the office so that we may evaluate you as soon as possible. B. Complications are uncommon, but please contact us if you have any signs or symptoms of: 1. wound infection (fever higher than 102.5 degrees F, redness, separation of wound, drainage, or increasing pain from the incision) 2. blood clots in legs (pain, swelling, redness and warmth in legs) 3. urinary tract infection (fever higher than 102.5 degrees F, burning upon urination or increased frequency of urination) 4. nerve problems (inability to walk on your toes or heels, numbness, loss of bowel or bladder control) 5. any other symptoms that concern you C. Please call the office at if you have any concerns or questions about your operation or recovery. D. No smoking! Smoking drastically decreases the chance of a solid fusion. E. Do not take any anti-inflammatory medications (Indocin, Advil, Motrin, Aspirin, Naprosyn, etc.) as these may inhibit the chance of a solid fusion. Tylenol is okay to take for pain. MANAGING PAIN AFTER SPINAL SURGERY 1. Narcotic medication is intended for short-term use and will be provided for surgical pain. Surgical pain usually lasts for a period of 4-6 weeks. Narcotic medication includes Percocet, Vicodin, Darvocet, Tylenol #3 or Lortab. 2. Longer-term pain is more appropriately treated with non-narcotic medication such as Tylenol ES. 3. Muscle spasm is not appropriately treated with narcotics. Muscle relaxers such as Soma, Flexeril or Skelaxin can be used along with Tylenol ES. 4. Remember that we all live with some "aches and pains". This is not unusual or uncommon after an injury or as we get older. a. Back pain is expected and may include muscle spasms for 4 to 6 weeks after surgery. The pain should gradually improve. If the pain worsens for no apparent reason, please contact the office. b. Intermittent leg pain may also be experienced and should not be concerned about unless it worsens for no apparent reason. If so, please contact the office. 5. We will provide appropriate medication within the normal guidelines of their prescribed use. We will also be very cautious and aware of potential abuse and extended duration of patients' medication needs. a. Pain medications are for your comfort and to assist with sleep and rest so that the tissue can heal. They are not provided in order to return to normal activity and should not be used through the day. To do so or worsening pain at night can result from ongoing tissue damage and development of tolerance to the prescribed medicine. 6. Please allow 2-3 days to process refills. Prescriptions will not be mailed but must be picked up at the office. FOLLOW UP VISIT: Keep your scheduled follow-up appointment. Any questions, please call the office at . Current Hospital Diet Patient's current hospital diet: Regular Diet, Diabetes Type 2 Diet Discharge Diet Recommended Diet: Regular Diet Procedures Procedures Performed: #1 lumbar decompression medial facetectomy foraminotomy L2 3 L3 4 L4 5 L5-S1. #2 posterior spinal fusion L2 3 L3 4 L4 5 L5-S1. #3 bilateral SI joint fusion. #4 placement posterior segmental instrumentation L2 to S1 with bilateral iliac bolts. #5 placement of locally harvested morcellized autograft and posterior gutters. #6 placement infuse collagen sponge combined with Master graft in the posterior lateral gutters and SI joints. Pending Studies Studies pending at discharge: no Laboratory Results Hemoglobin A1c Test 03/19/17 05:06 Range/Units Estimated Average Glucose 157 mg/dl Hemoglobin A1c 7.1 H 4.5-5.6 % Medical Emergencies . Who to Call and When: Medical Emergencies: If at any time you feel your situation is an emergency, please call 911 immediately. . Non-Emergent Contact Non-Emergency issues call your: Primary Care Provider . "Provider Documentation" section prepared by Rashaun Eddy. . VTE Core Measure Inpt VTE Proph given/why not?: Oh Gunderson, SCD's
--- NOTE | 2017-03-20 13:38 | Progress Note ---
Progress Note Date of Service Mar 20, 2017. Progress Note Patient is doing very well. He has no significant leg pain. Back pain is controlled. On exam is good strength testing appears comfortable. Assessment status post lumbar decompression fusion. Plan at this time will continue physical therapy anticipate discharge to [facility] tomorrow.
[2017-03-20 15:00] VITALS: BP 113/71; PULSE 90; TEMP 36.7; O2SAT 95
--- NOTE | 2017-03-20 18:58 | Progress Note ---
Medicine Progress Note Date & Time of Visit: Mar 20, 2017 at ~ 11:30 . Subjective Doing well postoperatively. No chest pain. No cough or dyspnea. No nausea or vomiting. Passing flatus, but no stool. Voiding without difficulty. Postop pain well-controlled. . Objective Last 8 Hrs Date Time Temp Pulse Resp B/P (MAP) Pulse Ox O2 Delivery O2 Flow Rate FiO2 03/20/17 15:30 Room Air 03/20/17 15:00 36.7 90 18 113/71 (85) 95 Room Air Physical Exam: General- sitting in chair, no distress Lungs- clear Heart- RRR, no gallop Abdomen- + BS, soft, nontender Back- bandaged Extremities- no pretibial edema or calf tenderness Skin- warm & dry Neuro- alert . Laboratory Results: Last 24 Hours Test 03/19/17 20:36 03/20/17 06:07 03/20/17 08:02 03/20/17 12:03 Bedside Glucose 132 mg/dl 155 mg/dl 147 mg/dl Hemoglobin 8.6 g/dL Hematocrit 24.9 % Test 03/20/17 17:09 Bedside Glucose 158 mg/dl Assessment & Plan S/P LUMBAR DECOMPRESSION / FUSION POD # 2. Doing well. HYPERTENSION BP this morning = 98/61. Continue atenolol. DM TYPE 2 Well-controlled. Hgb A1C = 7.1. FBS = 155. Insulin coverage per protocol. DYSLIPIDEMIA Continue atorvastatin. HYPOTHYROIDISM Continue levothyroxine. BPH Continue tamsulosin. VTE PROPHYLAXIS Per Ortho protocol. Thank you for this consultation. We will follow the patient with you during their hospital stay. You can reach a member of the [facility] Medicine Team 01/11 via pager @ [phone]. You can reach me via cell @ [phone]. . Current Inpatient Medications: Current Inpatient Medications Medications (Trade) Dose Ordered Sig/Mary Route Start Time Stop Time Status Last Admin Dose Admin Promethazine HCl 12.5 mg/Sodium Chloride 50.5 ml @ 202 mls/hr Q6H PRN IV 03/18/17 14:15 04/17/17 14:14 Ondansetron HCl (Zofran Inj) 4 mg Q6H PRN IV 03/18/17 14:15 04/17/17 14:14 Metoclopramide HCl (Reglan Inj) 10 mg Q6H PRN IV 03/18/17 14:15 04/17/17 14:14 Lorazepam (Ativan Tab) 0.5 mg Q8H PRN PO 03/18/17 14:15 04/17/17 14:14 Lorazepam 0.5 mg/ Syringe 0.25 ml @ 1 mls/min Q8H PRN IV 03/18/17 14:15 04/17/17 14:14 Pneumococcal Polysaccharide Vaccine 1 ea PRN PRN N/A 03/18/17 14:15 04/17/17 14:14 Influenza Virus Vacc Triv Types A&B 1 ea PRN PRN N/A 03/18/17 14:15 04/17/17 14:14 Polyethylene (Miralax Powder Packet) 17 gm Q6 PO 03/20/17 06:00 04/19/17 05:59 03/20/17 18:05 17 GM Bisacodyl (Dulcolax Supp) 10 mg DAILY PRN [place] 03/18/17 14:15 04/17/17 14:14 Magnesium Hydroxide (Milk Of Magnesia Susp) 30 ml DAILY PRN PO 03/18/17 14:15 04/17/17 14:14 Hydromorphone HCl (Dilaudid Inj) 0.5 mg Q3H PRN IV 03/19/17 09:00 04/02/17 08:59 Oxycodone HCl (Roxicodone Immediate Rel Tab) 5-10mg prn moderate to sev... Q4H PRN PO 03/19/17 06:00 04/02/17 05:59 03/20/17 16:19 5 MG Acetaminophen (Tylenol Tab) 1,000 mg Q8H PRN PO 03/18/17 14:15 04/17/17 14:14 Acetaminophen 100 ml @ 400 mls/hr Q8H PRN IV 03/18/17 14:15 04/17/17 14:14 Naloxone HCl (Narcan Inj) 0.1 mg Q5M PRN IV 03/18/17 14:15 04/17/17 14:14 Senna/Docusate Sodium (Senokot S Tab) 2 tab HS PO 03/18/17 21:00 04/17/17 20:59 03/19/17 21:19 2 TAB Sodium Biphosphate/ Sodium Phosphate (Fleet Enema) 132 ml ONE PRN [place] 03/18/17 14:15 04/17/17 14:14 Hydroxyzine HCl (Vistaril Tab) 25 mg Q8H PRN PO 03/18/17 14:15 04/17/17 14:14 Al Hydroxide/Mg Hydroxide (Maalox Susp) 30 ml Q6H PRN PO 03/18/17 14:15 04/17/17 14:14 Famotidine (Pepcid Tab) 20 mg Q12 PRN PO 03/18/17 14:15 04/17/17 14:14 Diphenhydramine HCl (Benadryl Cap) 25 mg Q6H PRN PO 03/18/17 14:15 04/17/17 14:14 Albuterol (Ventolin Hfa Inhaler) 2 puffs Q6H PRN INH 03/18/17 14:15 04/17/17 14:14 Aspirin (Ecotrin Tab) 81 mg QAM PO 03/19/17 09:00 04/18/17 08:59 03/20/17 08:41 81 MG Atenolol (Tenormin Tab) 25 mg QPM PO 03/18/17 21:00 04/17/17 20:59 03/19/17 21:23 25 MG Atorvastatin Calcium (Lipitor Tab) 40 mg QPM PO 03/18/17 21:00 04/17/17 20:59 03/19/17 21:19 40 MG Budesonide/ Formoterol Fumarate (Symbicort 160/ 4.5 Inh) 2 puffs BID INH 03/18/17 21:00 04/17/17 20:59 03/20/17 08:42 2 PUFFS Furosemide (Lasix Tab) 40 mg DAILY PRN PO 03/18/17 14:15 04/17/17 14:14 Levothyroxine Sodium (Synthroid Tab) 137 mcg DAILYBB PO 03/19/17 06:00 04/18/17 05:59 03/20/17 05:48 137 MCG Tamsulosin HCl (Flomax Cap) 0.4 mg QAM PO 03/19/17 09:00 04/18/17 08:59 03/20/17 08:42 0.4 MG Pantoprazole Sodium (Protonix Tab) 40 mg QAM PO 03/19/17 09:00 04/18/17 08:59 03/20/17 08:41 40 MG Miscellaneous Information (Consult Glycemic Management Pharmacy) 1 ea UD PRN N/A 03/18/17 14:23 04/17/17 14:22 Insulin Aspart (novoLOG ASPART) SLIDING SCALE ACHS SC 03/18/17 16:00 04/17/17 15:59 03/20/17 18:08 4 UNITS Glucose (Glucose 40% Gel) 15-30 GRAMS 15 GRAMS... UD PRN PO 03/18/17 15:15 04/17/17 15:14 Glucose (Glucose Chew Tab) 4-8 Tablets 4 Tabl... UD PRN PO 03/18/17 15:15 04/17/17 15:14 Dextrose (Dextrose 50% 50ML Syringe) 25-50ML OF 50% DW IV FOR... UD PRN IV 03/18/17 15:15 04/17/17 15:14 Glucagon (Glucagon Inj) 1 mg UD PRN SQ 03/18/17 15:15 04/17/17 15:14 Hydromorphone HCl (Dilaudid Inj) 1 mg Q3H PRN IV 03/19/17 09:00 04/02/17 08:59 Metformin HCl (Glucophage Tab) 500 mg BIDM PO 03/19/17 17:45 04/18/17 17:44 03/20/17 18:05 500 MG Insulin Glargine (Lantus Per Unit) SEE PROTOCOL TEXT BID SQ 03/20/17 21:00 04/19/17 20:59
[2017-03-20 21:00] VITALS: BP 109/69; PULSE 98
[2017-03-20] MEDS: LANTUS PER UNIT CHARGE SQ SCH (21:00)
[2017-03-20] MEDS: DOCUSATE SODIUM/SENNA 50/8.6MG TAB PO SCH (21:03)
[2017-03-20] MEDS: ATORVASTATIN 20 MG TAB PO SCH (21:04)
[2017-03-20 23:30] VITALS: BP 120/71; PULSE 81; TEMP 36.9; O2SAT 94
[2017-03-21] VITALS (22 sets, daily range): BP systolic 97–132; BP diastolic 56–80; PULSE 76–95; TEMP 36.3–37.3; O2SAT 93–97
[2017-03-21] MEDS: LEVOTHYROXINE 137 MCG TAB PO SCH (05:22)
[2017-03-21] MEDS: POLYETHYLENE (MIRALAX) 17 GM PACK PO SCH ×3 (05:22→17:52)
[2017-03-21] MEDS: BUDESONIDE/FORMOTEROL FUMARATE 160/4.5 60 PUFFS/INHALER INH SCH ×2 (07:18→21:17)
[2017-03-21] MEDS: ASPIRIN 81 MG ECTAB PO SCH (07:19)
[2017-03-21] MEDS: PANTOprazole SOD 40 MG TAB PO SCH (07:19)
[2017-03-21] MEDS: METFORMIN HCL 500 MG TAB PO SCH ×2 (07:19→17:52)
[2017-03-21] MEDS: TAMSULOSIN HCL 0.4 MG CAP PO SCH (07:19)
[2017-03-21] MEDS: INSULIN ASPART 100 UNITS/ML 3 ML PEN SC SCH ×4 (08:47→20:48)
[2017-03-21] MEDS ORDERED: LANTUS PER UNIT CHARGE SQ ONE (09:00)
[2017-03-21] MEDS: LANTUS PER UNIT CHARGE SQ SCH (09:46)
[2017-03-21 10:25] LABS: HEMATOCRIT 23.1 % (42-52)
[2017-03-21 10:40] LABS: CREATININE 0.88 mg/dl (0.60-1.40)
[2017-03-21 10:41] LABS: BUN/CREATININE RATIO 16.8 (10-20); POTASSIUM 4.1 mmol/L (3.5-5.1)
--- NOTE | 2017-03-21 10:44 | Anesthesiology Progress Note ---
Anesthesia Post Op Note Date & Time Mar 21, 2017 at 10:43 Vital Signs Vital Signs Past 12 Hours Date Time Temp Pulse Resp B/P (MAP) Pulse Ox O2 Delivery O2 Flow Rate FiO2 03/21/17 09:50 97/56 (70) 03/21/17 07:32 95 Room Air 03/21/17 07:24 124/80 (95) 03/21/17 07:15 Room Air 03/21/17 07:10 36.3 76 19 98/58 (71) 96 Room Air 03/21/17 05:20 37.3 87 16 116/73 (87) 93 Room Air 03/20/17 23:30 36.9 81 16 120/71 (87) 94 Room Air 03/20/17 23:15 Room Air Notes Mental Status: alert / awake / arousable, participated in evaluation Pt Amnestic to Procedure: Yes Nausea / Vomiting: adequately controlled Pain: adequately controlled Airway Patency, RR, SpO2: stable & adequate BP & HR: stable & adequate Hydration State: stable & adequate Anesthetic Complications: no major complications apparent
--- NOTE | 2017-03-21 11:10 | Progress Note ---
Progress Note Date of Service Mar 21, 2017. Progress Note Patient was seen this morning. He is feeling somewhat lightheaded with ambulation. He required two-person assist to return back to bed this morning. He continues to deny any leg pain. He states his back pain is controlled. JANY drainage decreasing appropriately.
[2017-03-21] MEDS: OXYCODONE HCL IR 5 MG TAB (IMMEDIATE RELEASE) PO PRN (16:09)
--- NOTE | 2017-03-21 20:08 | Progress Note ---
Medicine Progress Note Date & Time of Visit: Mar 21, 2017 at 19:30 . Subjective Weak and lightheaded this morning. Found to be anemia. Receiving pRBC's this evening. No fever. No chest pain. No cough or SOB. No nausea or vomiting. No BM since surgery. . Objective Last 8 Hrs Date Time Temp Pulse Resp B/P (MAP) Pulse Ox O2 Delivery O2 Flow Rate FiO2 03/21/17 19:40 36.9 91 18 131/79 94 03/21/17 19:25 36.7 89 16 129/78 94 03/21/17 19:10 36.5 91 18 120/74 95 03/21/17 18:25 36.7 90 14 114/76 95 03/21/17 17:25 37.3 90 20 127/65 96 03/21/17 16:55 36.9 91 20 121/77 96 03/21/17 16:25 36.9 91 20 127/74 96 03/21/17 16:05 37.3 91 18 113/71 95 03/21/17 16:03 Room Air 03/21/17 15:48 37.0 95 20 115/72 96 03/21/17 15:05 36.9 90 16 109/65 (80) 97 Room Air Physical Exam: General- lying in bed, no distress Lungs- clear Heart- RRR, no gallop Abdomen- + BS, soft, nontender Extremities- no pretibial edema or calf tenderness Skin- warm & dry Neuro- alert . Laboratory Results: Last 24 Hours Test 03/20/17 20:35 03/21/17 06:33 03/21/17 10:11 03/21/17 11:56 Bedside Glucose 133 mg/dl 160 mg/dl 166 mg/dl Hemoglobin 7.9 g/dL Hematocrit 23.1 % Sodium Level 133 mmol/L Potassium Level 4.1 mmol/L Chloride Level 100 mmol/L Carbon Dioxide Level 27 mmol/L Anion Gap 6.0 mmol/L Blood Urea Nitrogen 15 mg/dl Creatinine 0.88 mg/dl Est Creatinine Clear Calc Drug Dose 81.7 ml/min Estimated GFR () 96.7 Estimated GFR (Non- 83.4 BUN/Creatinine Ratio 16.8 Random Glucose 166 mg/dl Calcium Level 8.0 mg/dl Test 03/21/17 17:26 Bedside Glucose 154 mg/dl Assessment & Plan S/P LUMBAR DECOMPRESSION / FUSION POD # 3. Doing well except for postop anemia. HYPERTENSION BP this morning = 98/58. Continue atenolol. Consider reducing dose if blood pressures remain relatively low. DM TYPE 2 Well-controlled. Hgb A1C = 7.1. FBS = 160. Insulin coverage per protocol. Resume metformin when discharged. DYSLIPIDEMIA Continue atorvastatin. HYPOTHYROIDISM Continue levothyroxine. ANEMIA Hgb 15.7 --> 7.9. Acute blood loss anemia secondary to perioperative bleeding. Receiving pRBC's. BPH Continue tamsulosin. VTE PROPHYLAXIS Per Ortho protocol. Thank you for this consultation. We will follow the patient with you during their hospital stay. You can reach a member of the [facility] Medicine Team 01/11 via pager @ [phone]. You can reach me via cell @ [phone]. . Current Inpatient Medications: Current Inpatient Medications Medications (Trade) Dose Ordered Sig/Mary Route Start Time Stop Time Status Last Admin Dose Admin Promethazine HCl 12.5 mg/Sodium Chloride 50.5 ml @ 202 mls/hr Q6H PRN IV 03/18/17 14:15 04/17/17 14:14 Ondansetron HCl (Zofran Inj) 4 mg Q6H PRN IV 03/18/17 14:15 04/17/17 14:14 Metoclopramide HCl (Reglan Inj) 10 mg Q6H PRN IV 03/18/17 14:15 04/17/17 14:14 Lorazepam (Ativan Tab) 0.5 mg Q8H PRN PO 03/18/17 14:15 04/17/17 14:14 Lorazepam 0.5 mg/ Syringe 0.25 ml @ 1 mls/min Q8H PRN IV 03/18/17 14:15 04/17/17 14:14 Pneumococcal Polysaccharide Vaccine 1 ea PRN PRN N/A 03/18/17 14:15 04/17/17 14:14 Influenza Virus Vacc Triv Types A&B 1 ea PRN PRN N/A 03/18/17 14:15 04/17/17 14:14 Polyethylene (Miralax Powder Packet) 17 gm Q6 PO 03/20/17 06:00 04/19/17 05:59 03/21/17 17:52 17 GM Bisacodyl (Dulcolax Supp) 10 mg DAILY PRN MT 03/18/17 14:15 04/17/17 14:14 Magnesium Hydroxide (Milk Of Magnesia Susp) 30 ml DAILY PRN PO 03/18/17 14:15 04/17/17 14:14 Hydromorphone HCl (Dilaudid Inj) 0.5 mg Q3H PRN IV 03/19/17 09:00 04/02/17 08:59 Oxycodone HCl (Roxicodone Immediate Rel Tab) 5-10mg prn moderate to sev... Q4H PRN PO 03/19/17 06:00 04/02/17 05:59 03/21/17 16:09 5 MG Acetaminophen (Tylenol Tab) 1,000 mg Q8H PRN PO 03/18/17 14:15 04/17/17 14:14 Acetaminophen 100 ml @ 400 mls/hr Q8H PRN IV 03/18/17 14:15 04/17/17 14:14 Naloxone HCl (Narcan Inj) 0.1 mg Q5M PRN IV 03/18/17 14:15 04/17/17 14:14 Senna/Docusate Sodium (Senokot S Tab) 2 tab HS PO 03/18/17 21:00 04/17/17 20:59 03/20/17 21:03 2 TAB Sodium Biphosphate/ Sodium Phosphate (Fleet Enema) 132 ml ONE PRN MT 03/18/17 14:15 04/17/17 14:14 Hydroxyzine HCl (Vistaril Tab) 25 mg Q8H PRN PO 03/18/17 14:15 04/17/17 14:14 Al Hydroxide/Mg Hydroxide (Maalox Susp) 30 ml Q6H PRN PO 03/18/17 14:15 04/17/17 14:14 Famotidine (Pepcid Tab) 20 mg Q12 PRN PO 03/18/17 14:15 04/17/17 14:14 Diphenhydramine HCl (Benadryl Cap) 25 mg Q6H PRN PO 03/18/17 14:15 04/17/17 14:14 Albuterol (Ventolin Hfa Inhaler) 2 puffs Q6H PRN INH 03/18/17 14:15 04/17/17 14:14 Aspirin (Ecotrin Tab) 81 mg QAM PO 03/19/17 09:00 04/18/17 08:59 03/21/17 07:19 81 MG Atenolol (Tenormin Tab) 25 mg QPM PO 03/18/17 21:00 04/17/17 20:59 03/20/17 21:04 25 MG Atorvastatin Calcium (Lipitor Tab) 40 mg QPM PO 03/18/17 21:00 04/17/17 20:59 03/20/17 21:04 40 MG Budesonide/ Formoterol Fumarate (Symbicort 160/ 4.5 Inh) 2 puffs BID INH 03/18/17 21:00 04/17/17 20:59 03/21/17 07:18 2 PUFFS Furosemide (Lasix Tab) 40 mg DAILY PRN PO 03/18/17 14:15 04/17/17 14:14 Levothyroxine Sodium (Synthroid Tab) 137 mcg DAILYBB PO 03/19/17 06:00 04/18/17 05:59 03/21/17 05:22 137 MCG Tamsulosin HCl (Flomax Cap) 0.4 mg QAM PO 03/19/17 09:00 04/18/17 08:59 03/21/17 07:19 0.4 MG Pantoprazole Sodium (Protonix Tab) 40 mg QAM PO 03/19/17 09:00 04/18/17 08:59 03/21/17 07:19 40 MG Miscellaneous Information (Consult Glycemic Management Pharmacy) 1 ea UD PRN N/A 03/18/17 14:23 04/17/17 14:22 Insulin Aspart (novoLOG ASPART) SLIDING SCALE ACHS SC 03/18/17 16:00 04/17/17 15:59 03/21/17 18:00 7 UNITS Glucose (Glucose 40% Gel) 15-30 GRAMS 15 GRAMS... UD PRN PO 03/18/17 15:15 04/17/17 15:14 Glucose (Glucose Chew Tab) 4-8 Tablets 4 Tabl... UD PRN PO 03/18/17 15:15 04/17/17 15:14 Dextrose (Dextrose 50% 50ML Syringe) 25-50ML OF 50% DW IV FOR... UD PRN IV 03/18/17 15:15 04/17/17 15:14 Glucagon (Glucagon Inj) 1 mg UD PRN SQ 03/18/17 15:15 04/17/17 15:14 Hydromorphone HCl (Dilaudid Inj) 1 mg Q3H PRN IV 03/19/17 09:00 04/02/17 08:59 Metformin HCl (Glucophage Tab) 500 mg BIDM PO 03/19/17 17:45 04/18/17 17:44 03/21/17 17:52 500 MG Insulin Glargine (Lantus Per Unit) SEE PROTOCOL TEXT BID SQ 03/20/17 21:00 04/19/17 20:59 03/21/17 09:46 9 UNITS
[2017-03-21] MEDS: DOCUSATE SODIUM/SENNA 50/8.6MG TAB PO SCH (21:18)
[2017-03-21] MEDS: ATORVASTATIN 20 MG TAB PO SCH (21:18)
[2017-03-21] MEDS: INSULIN GLARGINE SOLOSTAR 100 UNITS/ML 3 ML PEN SQ SCH (21:27)
[2017-03-22] MEDS: POLYETHYLENE (MIRALAX) 17 GM PACK PO SCH ×5 (00:16→23:44)
[2017-03-22] MEDS: OXYCODONE HCL IR 5 MG TAB (IMMEDIATE RELEASE) PO PRN ×4 (04:42→20:42)
[2017-03-22 05:15] LABS: HEMATOCRIT 31.5 % (42-52)
[2017-03-22] MEDS: LEVOTHYROXINE 137 MCG TAB PO SCH (05:40)
[2017-03-22 07:11] VITALS: BP 105/64; PULSE 81; TEMP 36.8
[2017-03-22] MEDS: TAMSULOSIN HCL 0.4 MG CAP PO SCH (08:13)
[2017-03-22] MEDS: PANTOprazole SOD 40 MG TAB PO SCH (08:13)
[2017-03-22] MEDS: ASPIRIN 81 MG ECTAB PO SCH (08:13)
[2017-03-22] MEDS: BUDESONIDE/FORMOTEROL FUMARATE 160/4.5 60 PUFFS/INHALER INH SCH ×2 (08:13→20:47)
[2017-03-22] MEDS: METFORMIN HCL 500 MG TAB PO SCH ×2 (08:13→18:21)
[2017-03-22] MEDS: INSULIN GLARGINE SOLOSTAR 100 UNITS/ML 3 ML PEN SQ SCH ×2 (08:19→20:52)
[2017-03-22] MEDS: INSULIN ASPART 100 UNITS/ML 3 ML PEN SC SCH ×4 (08:28→20:53)
[2017-03-22 08:51] VITALS: BP 105/64; PULSE 81; TEMP 36.8; O2SAT 97
[2017-03-22] MEDS ORDERED: LANTUS PER UNIT CHARGE SQ ONE (09:00)
--- NOTE | 2017-03-22 12:27 | Discharge Summary ---
Orthopedic Discharge Summary Admission Date/Reason Mar 18, 2017 at 10:30 Lumbar Spinal Stenosis. Discharge Date/Disposition Mar 22, 2017 Rehab Diagnosis Principal Diagnosis: Lumbar spinal stenosis Admission Physical Exam As per Admitting History & Physical. Hospital Course Patient underwent lumbar decompression fusion trolleys wound taken to the orthopedic floor postoperatively. Postoperative day #1 he was up and amatory progressed nicely through postoperative day #2 posterior day #3 his hematocrit continue to drop he became symptomatic we elected to transfuse. He tolerated this well. Much better the following day and was socially discharge to rehabilitation. Discharge orders and instructions found the chart for further review. Discharge Instructions Please refer to the electronic Patient Visit Report (Discharge Instructions) for additional information.
--- NOTE | 2017-03-22 13:46 | Progress Note ---
Medicine Progress Note Date & Time of Visit: Mar 22, 2017 at 11:30 . Subjective Feels better after receiving blood transfusion last night. No chest pain. No cough or SOB. No nausea or vomiting. Voiding without difficulty. Pain well controlled. . Objective Last 8 Hrs Date Time Temp Pulse Resp B/P (MAP) Pulse Ox O2 Delivery O2 Flow Rate FiO2 03/22/17 08:51 36.8 81 18 97 Room Air 03/22/17 07:53 Room Air 03/22/17 07:11 36.8 81 18 105/64 (78) Room Air 95.0 Physical Exam: General- lying in bed, no distress Lungs- clear Heart- RRR, no gallop Abdomen- + BS, soft, nontender Extremities- no pretibial edema or calf tenderness Skin- warm & dry Neuro- alert . Laboratory Results: Last 24 Hours Test 03/21/17 17:26 03/21/17 20:39 03/22/17 04:55 03/22/17 07:59 Bedside Glucose 154 mg/dl 143 mg/dl 156 mg/dl Hemoglobin 10.6 g/dL Hematocrit 31.5 % Test 03/22/17 11:59 Bedside Glucose 100 mg/dl Assessment & Plan S/P LUMBAR DECOMPRESSION / FUSION POD # 4. HYPERTENSION BP this morning = 105/64. Continue atenolol. DM TYPE 2 Well-controlled. Hgb A1C = 7.1. FBS = 156. Insulin coverage per protocol. Resume metformin when discharged. DYSLIPIDEMIA Continue atorvastatin. HYPOTHYROIDISM Continue levothyroxine. ANEMIA Hgb 15.7 --> 7.9. Acute blood loss anemia secondary to perioperative bleeding. Received 1 unit pRBC's. Hgb today = 10.6. BPH Continue tamsulosin. VTE PROPHYLAXIS Per Ortho protocol. Thank you for this consultation. We will follow the patient with you during their hospital stay. You can reach a member of the [facility] Medicine Team 01/11 via pager @ [phone]. You can reach me via cell @ [phone]. . Current Inpatient Medications: Current Inpatient Medications Medications (Trade) Dose Ordered Sig/Mary Route Start Time Stop Time Status Last Admin Dose Admin Promethazine HCl 12.5 mg/Sodium Chloride 50.5 ml @ 202 mls/hr Q6H PRN IV 03/18/17 14:15 04/17/17 14:14 Ondansetron HCl (Zofran Inj) 4 mg Q6H PRN IV 03/18/17 14:15 04/17/17 14:14 Metoclopramide HCl (Reglan Inj) 10 mg Q6H PRN IV 03/18/17 14:15 04/17/17 14:14 Lorazepam (Ativan Tab) 0.5 mg Q8H PRN PO 03/18/17 14:15 04/17/17 14:14 Lorazepam 0.5 mg/ Syringe 0.25 ml @ 1 mls/min Q8H PRN IV 03/18/17 14:15 04/17/17 14:14 Pneumococcal Polysaccharide Vaccine 1 ea PRN PRN N/A 03/18/17 14:15 04/17/17 14:14 Influenza Virus Vacc Triv Types A&B 1 ea PRN PRN N/A 03/18/17 14:15 04/17/17 14:14 Polyethylene (Miralax Powder Packet) 17 gm Q6 PO 03/20/17 06:00 04/19/17 05:59 03/22/17 13:02 17 GM Bisacodyl (Dulcolax Supp) 10 mg DAILY PRN NC 03/18/17 14:15 04/17/17 14:14 Magnesium Hydroxide (Milk Of Magnesia Susp) 30 ml DAILY PRN PO 03/18/17 14:15 04/17/17 14:14 03/22/17 05:40 30 ML Hydromorphone HCl (Dilaudid Inj) 0.5 mg Q3H PRN IV 03/19/17 09:00 04/02/17 08:59 Oxycodone HCl (Roxicodone Immediate Rel Tab) 5-10mg prn moderate to sev... Q4H PRN PO 03/19/17 06:00 04/02/17 05:59 03/22/17 08:58 5 MG Acetaminophen (Tylenol Tab) 1,000 mg Q8H PRN PO 03/18/17 14:15 04/17/17 14:14 Acetaminophen 100 ml @ 400 mls/hr Q8H PRN IV 03/18/17 14:15 04/17/17 14:14 Naloxone HCl (Narcan Inj) 0.1 mg Q5M PRN IV 03/18/17 14:15 04/17/17 14:14 Senna/Docusate Sodium (Senokot S Tab) 2 tab HS PO 03/18/17 21:00 04/17/17 20:59 03/21/17 21:18 2 TAB Sodium Biphosphate/ Sodium Phosphate (Fleet Enema) 132 ml ONE PRN NC 03/18/17 14:15 04/17/17 14:14 Hydroxyzine HCl (Vistaril Tab) 25 mg Q8H PRN PO 03/18/17 14:15 04/17/17 14:14 Al Hydroxide/Mg Hydroxide (Maalox Susp) 30 ml Q6H PRN PO 03/18/17 14:15 04/17/17 14:14 Famotidine (Pepcid Tab) 20 mg Q12 PRN PO 03/18/17 14:15 04/17/17 14:14 Diphenhydramine HCl (Benadryl Cap) 25 mg Q6H PRN PO 03/18/17 14:15 04/17/17 14:14 Albuterol (Ventolin Hfa Inhaler) 2 puffs Q6H PRN INH 03/18/17 14:15 04/17/17 14:14 Aspirin (Ecotrin Tab) 81 mg QAM PO 03/19/17 09:00 04/18/17 08:59 03/22/17 08:13 81 MG Atenolol (Tenormin Tab) 25 mg QPM PO 03/18/17 21:00 04/17/17 20:59 03/21/17 21:19 25 MG Atorvastatin Calcium (Lipitor Tab) 40 mg QPM PO 03/18/17 21:00 04/17/17 20:59 03/21/17 21:18 40 MG Budesonide/ Formoterol Fumarate (Symbicort 160/ 4.5 Inh) 2 puffs BID INH 03/18/17 21:00 04/17/17 20:59 03/22/17 08:13 2 PUFFS Furosemide (Lasix Tab) 40 mg DAILY PRN PO 03/18/17 14:15 04/17/17 14:14 Levothyroxine Sodium (Synthroid Tab) 137 mcg DAILYBB PO 03/19/17 06:00 04/18/17 05:59 03/22/17 05:40 137 MCG Tamsulosin HCl (Flomax Cap) 0.4 mg QAM PO 03/19/17 09:00 04/18/17 08:59 03/22/17 08:13 0.4 MG Pantoprazole Sodium (Protonix Tab) 40 mg QAM PO 03/19/17 09:00 04/18/17 08:59 03/22/17 08:13 40 MG Miscellaneous Information (Consult Glycemic Management Pharmacy) 1 ea UD PRN N/A 03/18/17 14:23 04/17/17 14:22 Insulin Aspart (novoLOG ASPART) SLIDING SCALE ACHS SC 03/18/17 16:00 04/17/17 15:59 03/22/17 13:06 3 UNITS Glucose (Glucose 40% Gel) 15-30 GRAMS 15 GRAMS... UD PRN PO 03/18/17 15:15 04/17/17 15:14 Glucose (Glucose Chew Tab) 4-8 Tablets 4 Tabl... UD PRN PO 03/18/17 15:15 04/17/17 15:14 Dextrose (Dextrose 50% 50ML Syringe) 25-50ML OF 50% DW IV FOR... UD PRN IV 03/18/17 15:15 04/17/17 15:14 Glucagon (Glucagon Inj) 1 mg UD PRN SQ 03/18/17 15:15 04/17/17 15:14 Hydromorphone HCl (Dilaudid Inj) 1 mg Q3H PRN IV 03/19/17 09:00 04/02/17 08:59 Metformin HCl (Glucophage Tab) 500 mg BIDM PO 03/19/17 17:45 04/18/17 17:44 03/22/17 08:13 500 MG Insulin Glargine (Lantus Solostar Pen) SEE PROTOCOL TEXT BID SQ 03/21/17 21:00 04/20/17 20:59 03/22/17 08:19 9 UNITS
[2017-03-22 14:57] VITALS: BP 134/80; PULSE 83; TEMP 36.8; O2SAT 96
[2017-03-22 20:44] VITALS: BP 129/83; PULSE 78; O2SAT 97
[2017-03-22] MEDS: ATORVASTATIN 20 MG TAB PO SCH (20:47)
[2017-03-22] MEDS: DOCUSATE SODIUM/SENNA 50/8.6MG TAB PO SCH (20:47)
[2017-03-22 23:00] VITALS: BP 105/68; PULSE 76; TEMP 37; O2SAT 94
[2017-03-23] MEDS: OXYCODONE HCL IR 5 MG TAB (IMMEDIATE RELEASE) PO PRN (04:45)
[2017-03-23] MEDS: POLYETHYLENE (MIRALAX) 17 GM PACK PO SCH (06:22)
[2017-03-23] MEDS: LEVOTHYROXINE 137 MCG TAB PO SCH (06:23)
[2017-03-23 08:00] VITALS: BP 130/70; PULSE 72; TEMP 36.4; O2SAT 97
[2017-03-23] MEDS: INSULIN GLARGINE SOLOSTAR 100 UNITS/ML 3 ML PEN SQ SCH (08:23)
[2017-03-23] MEDS: BUDESONIDE/FORMOTEROL FUMARATE 160/4.5 60 PUFFS/INHALER INH SCH (08:30)
[2017-03-23] MEDS: METFORMIN HCL 500 MG TAB PO SCH (08:30)
[2017-03-23] MEDS: PANTOprazole SOD 40 MG TAB PO SCH (08:31)
[2017-03-23] MEDS: TAMSULOSIN HCL 0.4 MG CAP PO SCH (08:31)
[2017-03-23] MEDS: ASPIRIN 81 MG ECTAB PO SCH (08:31)
[2017-03-23] MEDS: INSULIN ASPART 100 UNITS/ML 3 ML PEN SC SCH (08:36)
[2017-03-23] MEDS ORDERED: NURSING VERBAL MED ORDER ONE (09:00)
--- NOTE | 2017-03-23 09:06 | Progress Note ---
Progress Note Date of Service Mar 23, 2017. Progress Note Patient is doing well today. Bowels working well. Ambulating on his own without assistance. Exam is good strength testing appears comfortable. Assessment status post lumbar decompression fusion replant this time he has been refused by his health insurance company to go to [facility]. Subsequently going home with home health.
--- NOTE | 2017-03-23 09:55 | Pharmacy Progress Note ---
Pharmacy Glycemic Short Note 2 Date of Service Mar 23, 2017. OUTPATIENT ANTIDIABETIC REGIMEN: * metformin 500 mg PO BID ASSESSMENT: * Mr Tejeda is a 76 y/o M POD 5 for lumbar surgery. His blood sugars yesterday ranged from 100-161 mg/dL with a fasting blood sugar of 156 mg/dL. He received 19 units of insulin yesterday with 9 units of Lantus. Expect further decline in total daily dose today to around 12 units. Can continue current Lantus dosing based upon scale but expect none to be given today. Appears that patient may actually require carbohydrate coverage. Start slightly looser than weight-based stress of 2. PLAN FOR INPATIENT GLYCEMIC CONTROL: * Hold outpatient oral diabetes medications * Basal insulin * Lantus 9 units SQ BID if blood sugar greater than 180 mg/dL * Bolus insulin * NovoLog per scale ACHS or Q6hrs while NPO * Goal Range: Low 110 mg/dL - High 140 mg/dL * Correction Factor: 30 mg/dL/unit * Nutritional / Prandial insulin per carb ratio of 1 unit per 10 grams CHO consumed PLAN FOR DISCHARGE: * see recommendations from 03/19/17
[2017-03-23 10:18] VITALS: O2SAT 97
== END 2017-03-23 11:30 | disposition home health service (06) | DRG 460 ==
LOC: C.ACU 08:43 → C.3E 10:30 → ENRESERV 15:09
PROVIDERS: ADMIT Orthopaedic Surgery Orthopaedic Surgery of the Spine; ATTEND Orthopaedic Surgery Orthopaedic Surgery of the Spine
PROC: 0SG1071 Fusion of 2 or more Lumbar Vertebral Joints with Autologous Tissue Substitute, Posterior Approach, Posterior Column, Open Approach (ICD-10-PCS; principal; 2017-03-18 11:15)
PROC: 0SG3071 Fusion of Lumbosacral Joint with Autologous Tissue Substitute, Posterior Approach, Posterior Column, Open Approach (ICD-10-PCS; principal; 2017-03-18 11:15)
PROC: 0SG704Z Fusion of Right Sacroiliac Joint with Internal Fixation Device, Open Approach (ICD-10-PCS; principal; 2017-03-18 11:15)
PROC: 0SG804Z Fusion of Left Sacroiliac Joint with Internal Fixation Device, Open Approach (ICD-10-PCS; principal; 2017-03-18 11:15)
DX: M48.061 Spinal stenosis, lumbar region without neurogenic claudication (principal); M43.16 Spondylolisthesis, lumbar region; N18.9 Chronic kidney disease, unspecified; D62 Acute posthemorrhagic anemia; E11.21 Type 2 diabetes mellitus with diabetic nephropathy; E78.5 Hyperlipidemia, unspecified; I12.9 Hypertensive chronic kidney disease with stage 1 through stage 4 chronic kidney disease, or unspecified chronic kidney disease; E03.9 Hypothyroidism, unspecified; Z79.82 Long term (current) use of aspirin; N40.0 Benign prostatic hyperplasia without lower urinary tract symptoms